=== PATIENT | female | born 1960 | race Caucasian/White ===

== ENCOUNTER → 2019-08-29 15:01 | Outpatient (BNVA) | payer OTHER, SELFPAY | PROVIDERS: Family Provider Family Medicine; PCP Family Medicine; Visit Provider Obstetrics & Gynecology | DX: Z01.89 Encounter for other specified special examinations (principal) ==

== ENCOUNTER 2020-03-22 13:10 | Outpatient (CLI) | payer OTHER, SELFPAY ==
--- NOTE | 2020-03-22 13:17 | MM_ITS ---
WS: [id number] BILATERAL SCREENING DIGITAL MAMMOGRAM WITH CAD HISTORY: SCREENING COMPARISON: 04/07/2016, 09/20/2018 and 07/27/2017 Bilateral CC and MLO views submitted. Computer aided detection analyzed. Breast composition: There are scattered areas of fibroglandular density. No suspicious masses, microc alcifications or architectural distortion. Stable nodules in the central LEFT breast. No increase in size. MM/[place] [id number] IMPRESSION: BI-RADS: 2-Benign FOLLOW UP: 1 Year Follow-up
== END 2020-03-22 13:11 | disposition home or self-care (01) ==
LOC: RADSHAW 13:13
PROVIDERS: PCP Family Medicine; Visit Provider Obstetrics & Gynecology
DX: Z12.31 Encounter for screening mammogram for malignant neoplasm of breast (principal)
CPT/HCPCS: 77067

== ENCOUNTER → 2020-11-17 15:12 | Outpatient (BNVA) | payer OTHER, SELFPAY | PROVIDERS: PCP Family Medicine; Visit Provider Family Medicine | DX: R31.9 Hematuria, unspecified (principal) | CPT/HCPCS: 81000; 87077; 87086; 87184 ==

== ENCOUNTER 2021-05-03 15:03 | Outpatient (CLI) | payer OTHER, SELFPAY ==
--- NOTE | 2021-05-03 15:13 | MM_ITS ---
WS: [id number] BILATERAL SCREENING DIGITAL MAMMOGRAM WITH CAD HISTORY: SCREENING COMPARISON: 03/22/2020, 09/20/2018, 10/23/2013 Bilateral CC and MLO views submitted. Computer aided detection analyzed. Breast composition: There are scattered areas of fibroglandular density. No suspicious masses, microc alcifications or architectural distortion. There are multiple nodules within the central LEFT breast. These nodules have been present since 2013 without significant increase in size. Otherwise the asymm etries within each breast are stable. MM/[place] [id number] IMPRESSION: BI-RADS: 2-Benign FOLLOW UP: 1 Year Follow-up
== END 2021-05-03 15:04 | disposition home or self-care (01) ==
LOC: RADSHAW 15:09
PROVIDERS: PCP Family Medicine; Visit Provider Family Medicine
DX: Z12.31 Encounter for screening mammogram for malignant neoplasm of breast (principal)
CPT/HCPCS: 77067

== ENCOUNTER → 2021-05-13 11:33 | Outpatient (BNVA) | payer OTHER, SELFPAY | PROVIDERS: PCP Family Medicine; Visit Provider Surgery | DX: Z20.822 Contact with and (suspected) exposure to COVID-19 (principal); Z12.11 Encounter for screening for malignant neoplasm of colon | CPT/HCPCS: 87635 ==

== ENCOUNTER 2021-05-18 06:40 | Day surgery (SDC) | payer OTHER, SELFPAY ==
[2021-05-13 10:51] VITALS: BMI 33.6
--- NOTE | 2021-05-18 06:24 | W.PM.OPSUD ---
Surgery/Procedure H&P Update DATE OF PROCEDURE: May 18, 2021 DATE H&P PERFORMED: 05/02/21 H&P UPDATE INFORMATION: I have reviewed H&P completed within last 30 days, I have examined patient prior to procedure and No changes to prior documentation PREOP DIAGNOSIS: Screening colonoscopy PRIMARY INDICATION FOR PROCEDURE: The same PLANNED PROCEDURE: Operation Date: 05/18/21 07:00 Proposed Procedures p Colonoscopy 82424 Z12.11(Not Applicable) - Cornelius Mosley MD
[2021-05-18 06:58] VITALS: BP 140/79; PULSE 68; RESP 18; TEMP 36.2; O2SAT 97
[2021-05-18] MEDS: sodium chloride 0.9% 1,000 ML 30 ML IV (07:05)
--- NOTE | 2021-05-18 07:07 | P.ANESASSM_ITS ---
Pre-Anesthetic Assessment Pre-Anesthetic Assessment: Height/Weight: Height 1.6 m Weight 86.183 kg Temp Pulse Resp BP Pulse Ox 97.1 F L 68 18 140/79 97 05/18/21 06:58 05/18/21 06:58 05/18/21 06:58 05/18/21 06:58 05/18/21 06:58 Preop Diagnosis: Screening colonoscopy Proposed Procedure: Operation Date: 05/18/21 07:00 Proposed Procedures p Colonoscopy 23988 Z12.11(Not Applicable) - Cornelius Mosley MD Familial anesthetic complications: no issues Last intake: Intake Last Liquid Date 05/17/21 Last Liquid Time 21:00 Last Solid Date 05/16/21 Social: Social History: No alcohol and No tobacco Exam: Pre-Anes Outpt Exam: alert, oriented x 3, clear to auscultation bilaterally and regular rate & rhythm Airway: Submandibular: WNL Cervical ROM: WNL MP: 3 Dentition: Full Additional comments: small mouth Pulmonary: Pulmonary: Sleep apnea Comments: BiPap @ PM CV/HEM: CV/HEM: None reported : : None reported Hepatic: Hepatic: None reported GI: GI: None reported Metabolic: Metabolic: DM, Hyperlipidemia and Morbid obesity [facility]/skel: [facility]/skel: None reported Neuropsych: Neuropsych: Depression and None reported Anesthetic Plan: ASA status: 3 Anesthesia: MAC Risk of > 500 ml blood loss (7ml/kg in children): No Meds/Allergies Current Medications: Current Medications Generic Name Dose Route Start Last Admin Trade Name Freq PRN Reason Stop Dose Admin Sodium Chloride 1,000 mls @ 30 ml s/hr 05/18/21 06:45 05/18/21 07:05 Sodium Chloride 0.9% IV 05/19/21 06:44 30 mls/hr .Q24H RADHA Administration PFSH Anesthesia PFSH: Medical History Allergies Depression Diabetes History of pancreatitis Reports was hyper triglyceride induced. States had 2 episodes with last one in 2005. Hyperlipidemia Surgical History History of bilateral tubal ligation (~1990) . Performed in [place], [place]. History of cholecystectomy (~2010) Laparoscopic. Performed in [place], [place] History of endometrial ablation (~2002) Performed in [place], [place] History of nasal surgery (~2009) Performed in [place] History of surgery (~1990) Anal sphincteroplasty. Performed in [place], [place] Status post LASIK surgery (~2009) Left Family History Family/Other Breast cancer maternal aunt x2 Heart disease maternal uncle, paternal aunt Mother Thyroid disease Father Stroke Hypercholesteremia Hypertension Diabetes Grandfather Stroke paternal Grandmother Diabetes Paternal Social History Smoking and tobacco status: former smoker Quit status (tobacco): has quit using tobacco Year quit tobacco: 1989 Alcohol intake: never Data Anesthesia Cardiac Studies: No Data to Display
[2021-05-18 07:45] VITALS: BP 99/54; PULSE 70; RESP 16; TEMP 36.7; O2SAT 99
[2021-05-18 08:13] VITALS: BP 103/62; PULSE 69; RESP 18; O2SAT 97
--- NOTE | 2021-05-18 09:15 | ANE.PACU2 ---
Inpatient post-anesthesia follow up: Airway intact: Yes Vital signs: Temperature 98.0 F Pulse Rate 69 Respiratory Rate 18 Blood Pressure 103/62 Pulse Oximetry 97 Oxygen Delivery Me thod Room Air Oxygen Flow Rate 6 Fraction of Inspir ed Oxygen Hydration adequate: Yes Mental status: Baseline
[2021-05-24 09:42] LABS: Glucose Point of Care 144 mg/dL (70-110)
== END 2021-05-18 08:25 | disposition home or self-care (01) ==
PROVIDERS: PCP Family Medicine; Visit Provider Surgery
PROC: 0DJD8ZZ Inspection of Lower Intestinal Tract, Via Natural or Artificial Opening Endoscopic (ICD-10-PCS; CPT 45378; principal; 2021-05-18 07:00)
DX: Z12.11 Encounter for screening for malignant neoplasm of colon (principal); G47.30 Sleep apnea, unspecified; E11.9 Type 2 diabetes mellitus without complications; E78.5 Hyperlipidemia, unspecified; E66.01 Morbid (severe) obesity due to excess calories; Z68.33 Body mass index [BMI] 33.0-33.9, adult; F32.9 Major depressive disorder, single episode, unspecified
CPT/HCPCS: 36416; 45378; 82962; 96360; J2704; J7030

== ENCOUNTER 2022-06-05 11:41 | Outpatient (CLI) | payer BC, MEDICAID, SELFPAY ==
--- NOTE | 2022-06-05 11:59 | MM_ITS ---
WS: [id number] Bilateral screening 3D tomosynthesis digital mammogram, 06/05/2022 Clinical Data: SCREENING Comparison: 05/03/2021, 03/22/2020, 09/20/2018, 07/27/2017, 04/07/2016, 03/30/2015, 10/23/2013, 06/27/2011, 06/25. Findings: The breast parenchymal pattern shows fibroglandular tissue. No spiculated masses or clustered calcifi cations are seen. There are no secondary signs of carcinoma. There are nodules in the central portion left breast unchanged. MM/[place] [id number] Impression: 1. Negative bilateral mammogram unchanged. 2. Recommend annual screening mammograms. BIRADS: 1-Negative FOLLOW UP: 1 Year Follow-up The CAD food checkers and cashiers supervisor was used.
== END 2022-06-05 11:42 | disposition home or self-care (01) ==
LOC: RAD 11:42
PROVIDERS: PCP Family Medicine; Visit Provider Family Medicine
DX: Z12.31 Encounter for screening mammogram for malignant neoplasm of breast (principal)
CPT/HCPCS: 77063; 77067

== ENCOUNTER 2022-06-28 13:37 | Outpatient (REF) | payer BC, MEDICAID, SELFPAY ==
[2022-06-28 14:23] LABS: Rubella IgG 473.3 IU/mL (0.0-10.0)
[2022-06-28 14:24] LABS: Hepatitis B Surface AB 4.7 (11.5-1000)
[2022-06-29 12:59] LABS: Rubeola Antibody IGG <13.50 AU/mL
[2022-07-01 11:45] LABS: Quantiferon Mitogen >10.00 IU/mL; Quantiferon Nil 0.02 IU/mL; Quantiferon Plus TB1 <0.00 IU/mL; Quantiferon Plus TB2 <0.00 IU/mL; Quantiferon TB Gold NEGATIVE (NEGATIVE)
== END 2022-06-28 13:38 | disposition home or self-care (01) ==
LOC: LAB 13:37
PROVIDERS: PCP Family Medicine; Visit Provider Dermatology
DX: Z01.89 Encounter for other specified special examinations (principal)
CPT/HCPCS: 86480; 86706; 86735; 86762; 86765; 86787

== ENCOUNTER → 2022-11-08 09:51 | Outpatient (BNVA) | payer BC, MEDICAID, SELFPAY | PROVIDERS: PCP Family Medicine; Visit Provider Internal Medicine Cardiovascular Disease | DX: R07.9 Chest pain, unspecified (principal) | CPT/HCPCS: 93005 ==

== ENCOUNTER 2022-12-05 11:03 | Outpatient (CLI) | payer BC, MEDICAID, SELFPAY ==
[2022-12-05 11:20] VITALS: BMI 34.7
--- NOTE | 2022-12-05 11:22 | ECG_ITS ---
[facility] Test Date: 2022-12-05 Pat Name: Jaqueline Chirinos Department: Room: Gender: Female Gut Dropper: : 1960 Requested By: Destini Shine Order Number: [id number] M Taylor MD: Walker Cisneros M.D. Interpretive Statements NAME OF STUDY: EXERCISE SESTAMIBI STRESS TEST INDICATION: [Chest Pain; Shortness of Breath] EXERCISE DATA: The patient was exercised by Tenzin protocol. Baseline heart rate was 69 beats per minute. Baseline blood pressure was 149/84 millimeters of mercury. Target heart rate was 136 beats per minute. Maximum heart rate achieved was 142 which was 104% of the target heart rate. Maximum blood pressure was 207/93 millimeters of mercury. Total exercise time was 7 minutes and seconds. Maximum METs achieved was 10.2 the reason for ending the test was target heart rate was achieved. The patient complained of notes of breath during the stress test, which then resolved at the end of the test. ELECTROCARDIOGRAM: BASELINE: Showed sinus rhythm, normal axis, no significant ST-T changes at the baseline noted. [] EXERCISE: At the peak exercise level, [] No significant ST-T changes suggestive of ischemia noted. [] RECOVERY: During the recovery period, heart rate dropped appropriately. No significant ST-T changes in the recovery suggestive of ischemia noted. [] CONCLUSION: 1. Exercise capacity good 2. Heart rate response was appropriate 3. Blood pressure response was hypertensive 4. Symptoms not suggestive of ischemia. 5. Electrocardiogram portion of the stress test was not suggestive of ischemia. 6. Nuclear scan will be documented separately Electronically Signed On 12-15-2022 15:05:03 CDT by Walker Cisneros M.D. [email or web address]
--- NOTE | 2022-12-05 11:22 | NMCV_ITS ---
NM asmita perf SPECT r/s* [id number] Jaqueline Chirinos Age: 62 Gender: F : 1960 Exam Date: 12/05/2022 12:20 Ordering Phys: Destini Shine MD ([email or web address]) Technologist: VIDHI Hernandez Exam [facility]: [facility] Indications: CHEST PAIN, SHORTNESS OF BREATH STRESS TEST Please see separate stress test report in [facility] for full findings IMAGE PROTOCOL Rest/Stress 1 Exercise Day Radiopharmaceutical Dose (mCi) Administration Site Administered by Rest: Tc-99m 11.0 IV VIDHI Hernandez Sestamibi Stress:Tc-99m 32.4 IV VIDHI Pfeiffer Sestamibi Rest: 05-Dec-2022 60 Discovery 630 Stress: 05-Dec-2022 15 Discovery 630 Radiopharmaceutical was injected at 85 % maximum heart rate. Images obtained in supine and prone position. SPECT RESULTS Technical Quality: Excellent Raw Data Analysis: Normal Image Corrections: No attenuation or motion correction applied Summed Stress Score: 0 Summed Rest Score: 0 Summed Difference Score: 0 PERFUSION FINDINGS SPECT images demonstrate homogeneous tracer distribution throughout the myocardium. FUNCTIONAL RESULTS (calculated via Gated SPECT) Stress Image LV EF (%): 69 Stress EDV (mL):70 TID: 0.69 Stress ESV (mL):22 FUNCTIONAL FINDINGS: The left ventricle is normal in size. Transient Ischemia Dilatation of 0.69. The left ventricular ejection fraction is normal with a value of 69%. There is normal left ventricular wall thickening. IMPRESSIONS 1. Myocardial perfusion imaging is normal. 2. Overall left ventricular systolic function is normal without regional wall motion abnormalities, LVEF=69%. 3. EKG portion of the study will be reported separately. 4. Scan indicates low risk for cardiac events. Destini Shine MD (Electronically Signed) Final Date: 11 December 2022 12:09 S
[2022-12-05 14:12] VITALS: BP 158/82; PULSE 82
== END 2022-12-05 11:04 | disposition home or self-care (01) ==
LOC: CDL 11:03
PROVIDERS: PCP Family Medicine; Visit Provider Internal Medicine Cardiovascular Disease
DX: R07.9 Chest pain, unspecified (principal); R06.02 Shortness of breath
CPT/HCPCS: 36415; 78452; 93017; A9500

== ENCOUNTER → 2023-07-27 15:07 | Outpatient (BNVA) | payer BC, MEDICAID, SELFPAY | PROVIDERS: PCP Family Medicine; Visit Provider Obstetrics & Gynecology | DX: Z12.4 Encounter for screening for malignant neoplasm of cervix (principal) | CPT/HCPCS: 88175 ==

== ENCOUNTER 2023-07-31 11:17 | Outpatient (CLI) | payer BC, MEDICAID, SELFPAY ==
--- NOTE | 2023-07-31 11:20 | MM_ITS ---
WS: [id number] BILATERAL SCREENING DIGITAL TOMOSYNTHESIS MAMMOGRAM WITH CAD HISTORY: Z12.31 - Encounter for screening mammogram for malignant ... COMPARISON: 06/05/2022, 05/03/2021 and 07/27/2017, 04/07/2016 Bilateral CC and MLO views with tomosynthesis and synthetic mammography submitted. Computer aided det ection analyzed. Breast composition: There are scattered areas of fibroglandular density. No suspicious masses, microc alcifications or architectural distortion. Bilateral lobulated breast masses are identified which hav e been present on multiple prior examinations extending back to 2016. No new mass or increasing size of any mass. IMPRESSION: MM/[place] [id number] BI-RADS: 2-Benign FOLLOW UP: 1 Year Follow-up
== END 2023-07-31 11:18 | disposition home or self-care (01) ==
LOC: RAD 11:18
PROVIDERS: PCP Family Medicine; Visit Provider Obstetrics & Gynecology
DX: Z12.31 Encounter for screening mammogram for malignant neoplasm of breast (principal); R92.323 Mammographic fibroglandular density, bilateral breasts
CPT/HCPCS: 77063; 77067

== ENCOUNTER 2023-10-16 10:18 | Outpatient (RCR) | payer OTHER, MEDICAID, SELFPAY | END 2023-10-23 23:59 | disposition home or self-care (01) | LOC: SPT 10:18 | PROVIDERS: PCP Family Medicine; Visit Provider Podiatrist Foot & Ankle Surgery | DX: M76.72 Peroneal tendinitis, left leg (principal) | CPT/HCPCS: 97110; 97161 ==

== ENCOUNTER 2023-10-24 06:00 | Outpatient (RCR) | payer OTHER, BC, MEDICAID, SELFPAY | END 2023-11-23 23:59 | disposition home or self-care (01) | LOC: SPT 06:00 | PROVIDERS: PCP Family Medicine; Visit Provider Podiatrist Foot & Ankle Surgery | DX: M76.72 Peroneal tendinitis, left leg (principal) | CPT/HCPCS: 97110 ==

== ENCOUNTER 2023-11-24 06:00 | Outpatient (RCR) | payer OTHER, BC, MEDICAID, SELFPAY | END 2023-12-19 23:59 | disposition home or self-care (01) | LOC: SPT 06:00 | PROVIDERS: PCP Family Medicine; Visit Provider Podiatrist Foot & Ankle Surgery | DX: M76.72 Peroneal tendinitis, left leg (principal) | CPT/HCPCS: 97110 ==

== ENCOUNTER → 2024-04-01 19:15 | Outpatient (BNVA) | payer OTHER, SELFPAY | PROVIDERS: PCP Family Medicine; Visit Provider Nurse Practitioner | DX: R10.9 Unspecified abdominal pain (principal) | CPT/HCPCS: 81000; 87086 ==

== ENCOUNTER 2024-08-08 11:09 | Outpatient (CLI) | payer OTHER, SELFPAY ==
--- NOTE | 2024-08-08 11:14 | MM_ITS ---
WS: [id number] BILATERAL SCREENING DIGITAL TOMOSYNTHESIS MAMMOGRAM WITH CAD HISTORY: SCREENING COMPARISON: 07/31/2023, 06/05/2022, 03/22/2020 Bilateral CC and MLO views with tomosynthesis and synthetic mammography submitted. Computer aided detection analyzed. Breast composition: There are scattered areas of fibroglandular density. No suspicious masses, microcalcifications or architectural distortion. Long-term stability of a lobulated high density mass 12:00 LEFT breast. There are benign calcifications in the LEFT breast. No area of architectural distortion. MM/MM [facility] tomosynthesis [id number] IMPRESSION: BI-RADS: 2 - Benign. FOLLOW UP: 1 Year Follow-up
== END 2024-08-08 11:10 | disposition home or self-care (01) ==
PROVIDERS: PCP Family Medicine; Visit Provider Family Medicine
DX: Z12.31 Encounter for screening mammogram for malignant neoplasm of breast (principal); R92.323 Mammographic fibroglandular density, bilateral breasts; N63.25 Unspecified lump in the left breast, overlapping quadrants; R92.1 Mammographic calcification found on diagnostic imaging of breast
CPT/HCPCS: 77063; 77067